=== PATIENT | female | born 1965 | race Caucasian/White ===

== ENCOUNTER 2018-11-05 09:36 | Emergency (ER) | payer MEDICAID ==
[~2018-11-05] VITALS: Ht 154.9 cm; Wt 100.0 kg
[2018-11-05 09:37] VITALS: BP 139/78
[2018-11-05] MEDS ORDERED: FLUC150T PO (09:52)
[2018-11-05] MEDS ORDERED: NYSPWD TP (09:52)
== END 2018-11-05 10:04 | disposition home or self-care (01) ==
LOC: ER 09:36
DX: L84 Corns and callosities (principal); B37.9 Candidiasis, unspecified; M79.671 Pain in right foot; Z88.5 Allergy status to narcotic agent; Z88.6 Allergy status to analgesic agent; Z79.899 Other long term (current) drug therapy
CPT/HCPCS: 99283

== ENCOUNTER 2018-12-09 07:44 | Emergency (ER) | payer MEDICAID ==
[~2018-12-09] VITALS: Ht 154.9 cm; Wt 105.0 kg
[~2018-12-09 07:44] MED LIST: NYSPWD TP
[2018-12-09 07:46] VITALS: BP 135/70
[2018-12-09] MEDS ORDERED: methylPREDNISolone sod succ 125mg/2ml vial IM ONE (09:00)
[2018-12-09] MEDS ORDERED: mupirocin 2% ointment 22GM TP STA (09:00)
[2018-12-09] MEDS ORDERED: triamcinolone acetonide 0.5% cream 15gm TP STA (09:00)
[2018-12-09] MEDS ORDERED: DIPH25CA83 PO (09:10)
[2018-12-09] MEDS ORDERED: TRIA15CR61 TOP (09:10)
[2018-12-09] MEDS ORDERED: MUPI22OI30 TOP (09:10)
== END 2018-12-09 09:36 | disposition home or self-care (01) ==
LOC: ER 07:45
DX: L01.09 Other impetigo (principal); L29.9 Pruritus, unspecified; Z88.5 Allergy status to narcotic agent; Z88.6 Allergy status to analgesic agent; Z79.899 Other long term (current) drug therapy
CPT/HCPCS: 96372; 99283; J2930

== ENCOUNTER 2020-12-04 10:12 | Day surgery (SDC) | payer MEDICAID ==
[2020-11-27 16:01] LABS: BASOPHILS % (AUTO) 0.2 % (0-1); EOSINOPHILS # (AUTO) 0.2 X10'3 (0-0.9); EOSINOPHILS % (AUTO) 2.2 % (0-6); LYMPHOCYTES # (AUTO) 1.6 X10'3 (1.1-4.8); LYMPHOCYTES % (AUTO) 15.7 % (21-51); MEAN CORPUSCULAR HEMOGLOBIN 27.4 PG (27.0-31.0); MEAN CORPUSCULAR HGB CONC 31.8 g/dL (33.0-36.5); MEAN CORPUSCULAR VOLUME 86.1 FL (78-98); MEAN PLATELET VOLUME 7.3 FL (7.4-10.4); MONOCYTES # (AUTO) 0.5 X10'3 (0-0.9); MONOCYTES % (AUTO) 5.4 % (2-12); NEUTROPHILS # (AUTO) 7.6 X10'3 (1.8-7.7); NEUTROPHILS % (AUTO) 76.5 % (42-75); PRE OP HEMATOCRIT 28.9 % (35.0-45.0); PRE OP PLATELET COUNT 316 X10'3 (140-440); RED BLOOD COUNT 3.35 X10'6 (4.20-5.60); RED CELL DISTRIBUTION WIDTH 24.7 % (11.5-14.5)
[2020-11-27 16:03] LABS: PRE OP HEMOGLOBIN 9.2 g/dL (12.0-16.0)
[2020-11-27 16:12] LABS: PRE OP PROTIME 10.5 SECONDS (9.0-12.0)
[2020-11-27 16:13] LABS: ALBUMIN 3.2 G/DL (3.4-5.0); ALBUMIN/GLOBULIN RATIO 0.9 (1.1-1.5); ALKALINE PHOSPHATASE 112 IU/L (46-116); BLOOD UREA NITROGEN 16 MG/DL (7-18); CALCIUM 7.9 MG/DL (8.5-10.1); CHLORIDE 105 MMOL/L (99-107); CREATININE 1.14 MG/DL (0.40-0.90); PRE OP ALT 25 U/L (30-65); PRE OP ANION GAP 7 (8-16); PRE OP AST 24 U/L (10-37); PRE OP BILIRUB, TOTAL 0.2 MG/DL (0.0-1.0); PRE OP GLUCOSE 105 MG/DL (70-104); PRE OP POTASSIUM 4.1 MMOL/L (3.4-5.1); PRE OP SODIUM 140 MMOL/L (135-145); TOTAL CARBON DIOXIDE 27.9 MMOL/L (24-32); TOTAL PROTEIN 6.9 G/DL (6.4-8.2); eGFR 49 ML/MIN
[2020-12-04] VITALS (12 sets, daily range): BP systolic 135–164; BP diastolic 52–76
[~2020-12-04] VITALS: Ht 154.9 cm; Wt 109.3 kg
[~2020-12-04 10:12] MED LIST changes: +ALBU17AE26 INH; +BACL10TA2 PO; +BUPR100T7 PO; +CELE-85 PO; +CLON0.5T4 PO; +DICY10CA18 PO; +DOCUMENT DATE & TIME OF BETA-BLOCKER PO ONE; +FLUT16SP26 NS; +FOLI-83 PO; +GABA300T25 PO; +LEVO137T2 PO; +METH2.5T PO; +METO-395 PO; +MONT10TA32 PO; -NYSPWD TP; +OXYC1TAB17 PO; +PANT40TA54 PO; +PARO40TA4 PO; +QUET400T13 PO; +albuterol 2.5 MG/3 ML nebule NEB PRN; +cefazolin/dext.iso 2gm/100ml IV ONE; +famotidine 20mg tablet PO ONE; +ringers solution, lacted 1,000 ML IV SCH
[2020-12-04] MEDS ORDERED: LORazepam 1 MG tablet PO ONE (12:35)
[2020-12-04] MEDS ORDERED: hydrALAZINE 20mg/ml inj. IV ONE (13:25)
[2020-12-04] MEDS ORDERED: sevoflurane 250ml liquid IH ONE (13:25)
[2020-12-04] MEDS ORDERED: BUPIVAcaine/PF 2.5mg/ml (0.25%) 10ml vial ONE (13:26)
[2020-12-04] MEDS ORDERED: bacitracin 15gm ointment TP ONE (13:26)
[2020-12-04] MEDS ORDERED: fentaNYL/PF 50MCG/1 ML 2ML syringe ONE ×2 (13:29→13:49)
[2020-12-04] MEDS ORDERED: midazolam 1 mg/ML 2ml injection ONE (13:29)
[2020-12-04] MEDS ORDERED: rocuronium 10mg/ml inj IV ONE (13:48)
[2020-12-04] MEDS ORDERED: propofol inj 20 ML IV ONE (13:48)
[2020-12-04] MEDS ORDERED: ondansetron/PF 4mg/2ml inj ONE (13:48)
[2020-12-04] MEDS ORDERED: LIDOcaine 2% (20mg/ml) 5ml vial ONE (13:48)
[2020-12-04] MEDS ORDERED: glycopyrrolate 0.2mg/ml inj ONE (13:48)
[2020-12-04] MEDS ORDERED: neostigmine methylsulfate 1 MG/ML 10ml vial ONE (13:48)
[2020-12-04] MEDS ORDERED: acetaminophen 1,000mg/100ml IV 100 ML IV ONE (13:48)
[2020-12-04] MEDS ORDERED: morphine 4 MG/ML inj SYRINge IV PRN (13:55)
[2020-12-04] MEDS ORDERED: ringers solution, lacted 1,000 ML IV SCH (13:55)
[2020-12-04] MEDS ORDERED: proCHLORperazine 10 MG/2 ml inj IV PRN (13:55)
[2020-12-04] MEDS ORDERED: morphine 2 MG/ML inj. syringe IV PRN (13:55)
[2020-12-04] MEDS ORDERED: meperidine/PF 25mg/ml syringe IV PRN ×3 (13:55)
[2020-12-04] MEDS ORDERED: ondansetron/PF 4mg/2ml inj IV PRN (13:55)
--- NOTE | 2020-12-04 14:25 | NUR ---
Received from OR via , accompanied by Anesthesiologist DR BERMAN and report given by AnesthesiolgistJoselo P PRESENTS WITH PIV 18G LEFT AC. PT DRESSING ON RIGHT FOOR/ANKLE DRY AND INTACT. VSS. Addendum: 12/04/20 at 1431 by Claire Khan RN, RN Amended: Links added.
--- NOTE | 2020-12-04 15:35 | NUR ---
PATIENT A&OX4, DENIES PAIN, V/S STABLE. I HAVE REVIEWED D/C ORDERS WITH PATIENT AND PT VERBALIZED UNDERSTANDING. PATIENT D/C HOME WITH ALL BELONGINGS AND MOTORIZED WHEELCHAIR. PT TRANSPORTED HOME BY [place] [employer] [facility]. Addendum: 12/04/20 at 1604 by Claire Khan RN, RN Amended: Links added.
== END 2020-12-04 15:35 | disposition home or self-care (01) ==
LOC: PAS 10:12
PROVIDERS: ATTEND Podiatrist Foot & Ankle Surgery
DX: M79.89 Other specified soft tissue disorders (principal); M67.471 Ganglion, right ankle and foot; M17.0 Bilateral primary osteoarthritis of knee; M06.9 Rheumatoid arthritis, unspecified; M19.071 Primary osteoarthritis, right ankle and foot; M19.072 Primary osteoarthritis, left ankle and foot; E66.9 Obesity, unspecified; Z68.42 Body mass index [BMI] 45.0-49.9, adult; F31.9 Bipolar disorder, unspecified; K21.9 Gastro-esophageal reflux disease without esophagitis; G89.29 Other chronic pain; I10 Essential (primary) hypertension; J44.9 Chronic obstructive pulmonary disease, unspecified; Z90.710 Acquired absence of both cervix and uterus; Z98.890 Other specified postprocedural states; Z88.5 Allergy status to narcotic agent; Z88.8 Allergy status to other drugs, medicaments and biological substances; Z88.2 Allergy status to sulfonamides; Z87.891 Personal history of nicotine dependence; Z86.19 Personal history of other infectious and parasitic diseases; Z86.11 Personal history of tuberculosis; Z79.899 Other long term (current) drug therapy; Z82.49 Family history of ischemic heart disease and other diseases of the circulatory system
CPT/HCPCS: 28041; 36415; 80053; 82948; 85025; 85610; 85730; 93005; 94640; 94760; A6223; J0131; J0360; J2001; J2250; J2405; J2704; J2710; J3010; J3490; Z7506; Z7512; A4215; A4618; A6449; A7000; J7120

== ENCOUNTER → 2023-10-06 | Outpatient (CLI) | payer MEDICAID ==
[~2023-10-06] MED LIST changes: +BUPR100T15 PO; -BUPR100T7 PO; +CELE-127 PO; -CELE-85 PO; -DOCUMENT DATE & TIME OF BETA-BLOCKER PO ONE; +MONT-40 PO; -MONT10TA32 PO; -albuterol 2.5 MG/3 ML nebule NEB PRN; -cefazolin/dext.iso 2gm/100ml IV ONE; -famotidine 20mg tablet PO ONE; -ringers solution, lacted 1,000 ML IV SCH
== END | disposition home or self-care (01) ==
LOC: RAD 14:05
PROVIDERS: ATTEND General Practice
DX: M47.812 Spondylosis without myelopathy or radiculopathy, cervical region (principal); Y09 Assault by unspecified means
CPT/HCPCS: 70450; 72125